=== PATIENT | male | born 1965 | race Caucasian/White ===

== ENCOUNTER 2020-05-12 09:03 | Day surgery (SDC) | payer OTHER, SELFPAY ==
[2020-05-12] VITALS (7 sets, daily range): BP systolic 114–150; BP diastolic 52–89; PULSE 65–88; RESP 12–16; TEMP 36.2–37.3; O2SAT 94–100; BMI 25.9
[2020-05-12] MEDS: Lactated Ringers 1,000 ML 100 ML IV ×2 (09:30→13:19)
[2020-05-12] MEDS: Cefazolin 2 GM in 0.9% Normal Saline 100 ML IV (10:48)
--- NOTE | 2020-05-12 10:49 | PCM.HP.STD ---
History of Present Illness Date of Admission: 05/12/20 Chief Complaint: Left symptomatic hydrocele The patient is a 55 year old male who presented to the office with symptomatic hydrocele tried conservative measures and antibiotics alone time and rest but he came back to the office still having more pain or discomfort and we discussed options and he wants to proceed with a hydrocelectomy which is reasonable. We did ultrasound demonstrated no masses in the testicle. Past Medical History Allergies No Known Allergies Allergy (Verified 05/12/20 09:09) Home Medications: Ambulatory Orders Medication Instructions Recorded NK 05/08/20 Surgical History: no surgical history Smoking Status: Never smoker Tobacco Use: Non-smoker Review of Systems Constitutional: Denies: Chills, Fever, Weight Change HEENT: Denies: Head Aches, Sinus Congestion, Sinus Drainage Cardiovascular: Denies: Chest Pain, Palpitations Respiratory: Denies: Cough, Shortness of breath at rest, Sputum production Gastrointestinal: Denies: Abdominal Pain, Nausea, Vomiting Genitourinary: Denies: Dysuria Musculoskeletal: Denies: Joint Pain, Joint Tenderness Skin: Denies: Rash, Wounds Neurological: Denies: Numbness, Tingling, Focal weakness Psychiatric: Denies: Anxiety, Depression, Homicidal Ideations, Suicidal Ideations Hematologic/ Lymphatic: Denies: Easy Bruising, Easy Bleeding VTE Information - Inpt Only VTE Present on Admission: No - Physical Exam Vitals/I&O's: Vital Signs Temp Pulse Resp BP Pulse Ox 99.1 F 83 16 150/89 H 100 05/12/20 09:18 05/12/20 09:18 05/12/20 09:18 05/12/20 09:18 05/12/20 09:18 Oxygen Delivery Method Room Air Weight: 82.1 kg Body Mass Index (BMI) 25.9 General: Alert, Oriented x3, Cooperative HEENT: Atraumatic, PERRLA, EOMI, Normocephalic Neck: Supple, No JVD, Negative Carotid Bruits Lungs: Clear to auscultation, Normal air movement Cardiovascular: Regular rate, No murmurs Abdomen: Bowel Sounds Present, Soft, Non Tender Extremities: No edema, Capillary Refill Less than 3 Seconds Skin: No rashes, No breakdown Musculoskeletal: No Tenderness to Palpation of Joints or Extremities Neurological: Cranial nerves II-XII grossly intact Psych/Mental Status: Normal Affect, Appropriate Microbiology Past 72 Hours 05/10/20 13:10 Interface Orders SARS-CoV-2 Antigen (Rapid) - Final Current Medications Cefazolin Sodium 2 gm/ Sodium (Chloride) 110 mls @ 150 mls/hr IV PREOP ONE Stop: 05/12/20 13:08 Lactated Ringer's () 1,000 mls @ 100 mls/hr IV .Q10H TRICE Last Admin: 05/12/20 09:30 Dose: 100 mls/hr Documented by: Assessment/Plan Plan proceed with left hydrocelectomy.
--- NOTE | 2020-05-12 10:51 | DCINST_ITS ---
Discharge Diet: Light diet - advance as tolerated Discharge Activity: May Not Drive, May not drive while taking narcotic pain medications. Call your doctor if your incision/area has: Sudden Increased Bleeding Call your doctor if you observe: Fever of 101 or Higher Suture Line Care: Avoid Pulling/Pushing, Avoid Pinching/Bending Allergies/Adverse Reactions: Allergies No Known Allergies Allergy (Verified 05/12/20 09:09) Medications to take at Discharge NK 05/08/20 Primary Care Physician: Anayeli Olivera MD [Primary Care Provider] - Test Results: Test results from this visit will be discussed in further detail at your follow- up appointment, if applicable. Please Follow Up With: Andrew Acosta MD - [phone] When: in 2 weeks, please call to make an appointment.
--- NOTE | 2020-05-12 11:10 | HYD_PTH ---
PATIENT: VENKATA KAUR [place] [facility] [place] [facility] [place][id number] AGE/SX: 55/M ROOM: RE05/12/[address]: Dr. Andrew Acosta MD : [id number] BED: DIS: 05/12/2020 SPEC #: [id number] RECD: 05/12/20 14:38 STATUS: YOVANY REVinnie #: [id number] LENIN: 05/12/20 11:[address]: Andrew Acosta DEPT: SURGICAL PATHOLOGY RECD BY: Dulce Ragland ENTERED: 05/15/20 06:53 SP TYPE: HYDROCELE OTHR DR: Dr. Anayeli Olivera MD Tissues: HYDROCELE Procedures: Surgery Specimen Level II HEADER OPERATION: Hydrocelectomy PRE-OP DIAGNOSIS: Left symptomatic hydrocele TISSUE SUBMITTED: Left hydrocele sac MICROSCOPIC DIAGNOSIS Left hydrocele sac: Consistent with hydrocele sac. Adjacent epididymis tissue, no pathologic diagnosis. SJ:loy 05/16/20 MICROSCOPIC DESCRIPTION Slides are reviewed. GROSS DESCRIPTION Received in fixative is one container labeled with the patient's name and designated left hydrocele sac. The specimen consists of three variable sized pieces of membranous tissue that in aggregate measure 6 x 6 x 0.5 cm. No mass lesion is identified. Key Punch Operator sections are submitted in one cassette. / SJ:loy 05/15/20 TC:5 CPT: 31652
[2020-05-12] MEDS: Bupivacaine Mpf 0.5% 30 ML VIAL (11:20)
--- NOTE | 2020-05-12 11:26 | PCM.OPRPT ---
Report of Operation Date of Procedure: 05/12/20 Pre-Operative Diagnosis: Left hydrocele and spermatocele Post-Operative Diagnosis: Same Surgery/Procedure Performed:: Excision of left large spermatocele and left large hydrocele Description of Surgical Findings:: 55-year-old male was having significant swelling in the left hemiscrotum on ultrasound was found to have what appeared to be a hydrocele she is taken back to surgery for removal of the hydrocele. After the patient went under general anesthesia the scrotum was shaved prepped and draped in usual sterile fashion made a small 3 cm incision the midline raphae dissected down to the dartos layer and then down to the hydrocele sac on the left side grabbed the sac with Allis clamps pulled up made an incision and then drained some fluid out but then underneath this was a large spermatocele. This was also grabbed an Allis clamp and drained and then I was able to deliver the entire testicle I then excised the spermatocele off the testicle and then excised the wings of the hydrocele off the testicle as well. Cauterized obtain hemostasis we then put the testicle back into the scrotum we closed the incision in the scrotum in 2 layers with a 3-0 chromic and a 4-0 chromic in a running fashion. Dressings and scrotal support was placed. Patient was taken back to the PACU after extubation in stable condition follow-up in the office in about 10 days for checkup. Type of Anesthesia:: General Drains: none - Admit VTE Documentation VTE Present on Admission: No
[2020-05-12] MEDS: proMETHazine 25 MG/ML Syringe 12.5 MG IV (13:06)
== END 2020-05-12 14:32 | disposition home or self-care (01) ==
LOC: SDC 09:03 → AC 09:04
PROVIDERS: Referring Provider Urology; Visit Provider Urology
PROC: (CPT 54840; principal; 2020-05-12 10:55)
DX: N43.3 Hydrocele, unspecified (principal); N43.41 Spermatocele of epididymis, single; Z20.828 Contact with and (suspected) exposure to other viral communicable diseases
CPT/HCPCS: 54840; 55040; 87426; 88302; C9803; J7120; J2405

== ENCOUNTER 2021-06-13 11:48 | Emergency (ER) | payer OTHER, SELFPAY ==
[2021-06-13 11:49] VITALS: BP 148/99; PULSE 75; RESP 18; TEMP 36.1; O2SAT 98; BMI 26.3
--- NOTE | 2021-06-13 12:03 | EKG12_ITS ---
Test Reason : CHEST PAIN Blood Pressure : / mmHG Vent. Rate : 074 BPM Atrial Rate : 074 BPM P-R Int : 150 ms QRS Dur : 078 ms QT Int : 374 ms P-R-T Axes : 041 015 035 degrees QTc Int : 415 ms Normal sinus rhythm with sinus arrhythmia Low voltage QRS (Limb Leads) Confirmed by LIBBY FOLEY, DEEPIKA ([id number]), editor index CARLITOS SANCHEZ ([id number]) on 06/28/2021 8:57:22 AM Referred By: DORA Confirmed By:DEEPIKA SOUZA MD
--- NOTE | 2021-06-13 12:03 | RAD_ITS ---
INDICATION: chest pain EXAMINATION/TECHNIQUE: X-RAY - XR Chest 1 View COMPARISON: None. FINDINGS: LINES/DEVICES: None. LUNGS: No consolidation, edema or effusion. No pneumothorax. MEDIASTINUM AND CARDIOVASCULAR STRUCTURES: Cardiac silhouette not enlarged. Central airways and mediastinal contour are unremarkable. BONES AND SOFT TISSUES: Unremarkable. RAD/Chest 1 View (Portable) IMPRESSION: No radiographic evidence of acute cardiopulmonary disease. Electronically Signed: Rangel Boucher MD at 13:12 EST Tel , Service support ,
--- NOTE | 2021-06-13 12:05 | NURSING ---
NO OLD EKGS
[2021-06-13 12:27] LABS: Absolute Lymphocyte Count 1.51 X10^3/uL (0.83-4.51); Absolute Neutrophil Count 3.8 X10^3/uL (2.0-7.7); Basophil# 0.04 X10^3/uL; Basophil% 0.7 % (0-1); Eosinophil# 0.07 X10^3/uL; Eosinophils% 1.2 % (0-5); Hematocrit 42.8 % (40-54); Hemoglobin 14.3 g/dL (13.0-16.5); Lymphocyte # 1.51 X10^3/ul (0.83-4.51); Lymphocyte % 25.9 % (19-41); Mean Corp Hgb Conc 33.4 g/dL (32-36); Mean Corpuscular Hgb 30.4 pg (27.0-32.0); Mean Corpuscular Volume 90.9 fL (80-94); Mean Platelet Vol. 9.1 fl (6.2-12.0); Monocyte# 0.37 X10^3/uL; Monocyte% 6.3 % (0-10); NRBC Flagged by Analyzer 0 % (0-5); Neutrophil # 3.84 X10^3/uL (2.7-7.7); Neutrophil % 65.7 % (47-70); Platelet Count 393 K/mm3 (150-450); RBC Distribution Width CV 12.7 % (11.6-14.6); RBC Distribution Width SD 41.4 fl (35.1-43.9); Red Blood Count 4.71 M/mm3 (4.6-6.2); White Blood Count 5.8 K/mm3 (4.4-11.0)
[2021-06-13 12:51] LABS: Anion Gap 6 (5-15); BUN 13 mg/dL (7-18); BUN/Creat Ratio 14.3 RATIO (10-20); Calcium,Total 9.5 mg/dL (8.5-10.1); Chloride 109 mmol/L (98-107); Creatinine, Serum 0.91 mg/dL (0.70-1.30); EST Glomerular Filtration Rate 91 mL/min (>60); Est Glom Filt Rate - Afr Amer 110 mL/min (>60); Estimated Creatinine Clearance 92.48 ml/min; Glucose 102 mg/dL (74-106); Sodium Level 140 mmol/L (136-145); Troponin-I HS 4 pg/mL (3.0-78.0)
--- NOTE | 2021-06-13 14:40 | ED.VIS.CHEST ---
HPI History of Present Illness Chief Complaint: Chest Pain Informant: patient Onset/Context/Timing Onset: Today Activity at onset: gradual Timing: Continuous Quality: Positive for Sharp Location: Substernal and Left Parasternal Worsened By: Nothing Relieved By: - (Rubbing his chest) Associated Symptoms: Positive for Cough and Lightheadedness; Negative for Nausea, Vomiting, Diaphoresis, Dyspnea, Fever, Acid Reflux and Palpitations Narrative Narrative: Patient presents with chest pain that began this morning. Patient states it is gradually gotten worse. Patient states it has been waxing and waning throughout the day. Patient describes his pain as sharp. Patient states the pain is over the left parasternal and substernal areas. Patient states it radiates into his back and a little into his right chest. Patient states he got better when he was rubbing his chest. Patient states nothing makes it worse. Patient admits to some mild lightheadedness with it. Patient has had a recent cough. Patient states this is from chronic sinus infections. Patient denies any nausea or vomiting. Patient denies any diaphoresis. Patient denies any shortness of breath or fevers. Patient states that earlier this week, he was kneeling down and when he stood up he felt a funny feeling in the back of his left knee. Patient states this resolved. CVD Risk Factors: Positive for Hypertension and Hypercholesterolemia; Negative for Diabetes, Family History 1' </=55 and Smoking PE Risk Factors: Negative for Recent Travel/Surgery, Recent Immobilization, Prior DVT or PE, Cancer and OCP + Smoking + >/=35 PFSH PFSH Medical History (Updated 06/13/21 @ 15:[address] Elijah Turcios DO) Hypercholesterolemia Hypertension Home Medications atorvastatin 10 mg PO DAILY 06/13/21 [History Last Taken Unknown] losartan 25 mg PO DAILY 06/13/21 [History Last Taken Unknown] Allergy/AdvReac Type Severity Reaction Status Date / Time No Known Allergies Allergy Verified 05/12/20 09:09 Surgical History S/P repair of hydrocele Social History Smoking Status: Never smoker ROS ROS ED Constitutional Constitutional ED: Denies chills or fever(s) Eyes Eyes: Denies blurry vision or change in vision ENT ENT ED: Reports ear pain right; Denies rhinorrhea or sore throat Cardiovascular Cardiovascular: Reports chest pain; Denies palpitations Respiratory/Chest Respiratory/Chest: Reports cough; Denies dyspnea Gastrointestinal Gastrointestinal: Reports nausea; Denies abdominal pain or vomiting Genitourinary Genitourinary ED: Denies dysuria or hematuria Musculoskeletal Musculoskeletal: Reports back pain; Denies neck pain Integumentary Denies abscess or rash Neurologic Neurologic: Denies headache(s) or weakness Allergic/Immunologic Allergic/Immunologic ED: Denies mouth swelling or urticaria EXAM Physical Exam Const Vital Signs: 06/13/21 11:49 06/13/21 14:40 06/13/21 14:46 Temperature 97 F L Temperature Source Temporal Pulse Rate 75 Respiratory Rate 18 Respiratory Effort Normal Blood Pressure 148/99 H Blood Pressure Mean 115 Pulse Ox 98 Oxygen Delivery Method Room Air Room Air 06/13/21 14:48 Temperature Temperature Source Pulse Rate 86 Respiratory Rate 18 Respiratory Effort Blood Pressure 125/92 H Blood Pressure Mean 103 Pulse Ox 97 Oxygen Delivery Method Room Air Positive well nourished and well developed General Appearance ED: well developed and NAD HEENT normocephalic and atraumatic Eyes PERRL and EOMs intact bilaterally Neck supple and no JVD Chest Wall inspection of chest normal and palpation of chest normal Resp normal respiratory effort and clear to auscultation bilaterally Effort and Inspection: Negative for respiratory distress Cardio regular rate, regular rhythm and no murmurs GI normal to inspection, nondistended, normoactive bowel sounds, soft to palpation, non-tender and non-distended Extremity normal to inspection General Extremety ED: Negative for edema or tenderness General Extremity: Negative for edema Neuro oriented x3, CN's II-XII intact bilaterally and no sensory deficits noted Sensorium / Orientation: awake and alert Motor Exam: strength 5/5 throughout Psych mental status grossly normal Heart Score History: Moderately Suspicious ECG: Normal Age: >45 - <65 years Risk Factors: 1 or 2 Risk Factors Troponin: </= Normal Limit Score: 3 MDM MDM MDM Narrative Medical decision making narrative: EKG was obtained. On my interpretation, it showed a normal sinus rhythm with a rate of 74. ND interval, QRS interval, and QTc intervals were all normal. [place] was normal. There are no acute ST or T wave changes. Portable 1 view chest x-ray was obtained. On my interpretation, lung bolanos are clear. There is normal cardiac silhouette. Bony thorax is normal. There is no acute process noted. Radiologist also interpreted the x-ray and agrees. CBC was within normal limits. Basic metabolic profile was obtained and was within normal limits. Initial high-sensitivity troponin was normal at 4. D-dimer was normal at 0.31. 2-hour repeat high-sensitivity troponin was normal at 5. Patient has a HEART score of 3. Patient was advised that this is low risk for acute cardiac event. Patient was instructed to follow-up with his primary care physician in 3 to 5 days. Patient was instructed return if worse in any way. Patient understood and was agreeable with the plan. All questions were answered. Lab Data Attestation: I reviewed the patient's lab results. Labs: Laboratory Results - last 24 hr 06/13/21 06/13/21 06/13/21 12:15 12:15 14:40 WBC 5.8 RBC 4.71 Hgb 14.3 Hct 42.8 MCV 90.9 MCH 30.4 MCHC 33.4 RDW Std Deviation 41.4 RDW Coeff of [place] 12.7 Plt Count 393 MPV 9.1 Immature Gran % (Auto) 0.200 Neut % (Auto) 65.7 Lymph % (Auto) 25.9 Cannon % (Auto) 6.3 Eos % (Auto) 1.2 Baso % (Auto) 0.7 Absolute Neuts (auto) 3.8 Absolute Lymphs (auto) 1.51 Nucleated RBC % 0 D-Dimer Quant (PE/DVT) Sodium 140 Potassium 5.0 Chloride 109 H Carbon Dioxide 25.0 Anion Gap 6 BUN 13 Creatinine 0.91 Estim Creat Clear Calc 92.48 Est GFR (MDRD) Af Amer 110 Est GFR (MDRD) Non-Af 91 BUN/Creatinine Ratio 14.3 Glucose 102 Calcium 9.5 Troponin I High Sens 4 5 06/13/21 14:40 WBC RBC Hgb Hct MCV MCH MCHC RDW Std Deviation RDW Coeff of [place] Plt Count MPV Immature Gran % (Auto) Neut % (Auto) Lymph % (Auto) Cannon % (Auto) Eos % (Auto) Baso % (Auto) Absolute Neuts (auto) Absolute Lymphs (auto) Nucleated RBC % D-Dimer Quant (PE/DVT) 0.31 Sodium Potassium Chloride Carbon Dioxide Anion Gap BUN Creatinine Estim Creat Clear Calc Est GFR (MDRD) Af Amer Est GFR (MDRD) Non-Af BUN/Creatinine Ratio Glucose Calcium Troponin I High Sens Radiography Chest X-Ray - ED: 1 View, Read by ED Physician, Read by Radiologist and Normal Diagnostic Testing: Clinical Impression(s) from Imaging Studies Chest X-Ray 06/13/21 12:03 IMPRESSION: No radiographic evidence of acute cardiopulmonary disease. Electronically Signed: Rangel Boucher MD at 13:12 EST Tel , Service support , EKG Initial EKG: Attestation: I personally reviewed and interpreted this EKG as follows: Interpretation: Sinus Rhythm (74) and No Acute Injury Pattern Prior EKG tracings: not available for review Discharge Plan Triage Chief Complaint: Chest Pain ED Provider: Elijah Turcios Dx/Rx/DC Orders Clinical Impression: Chest pain Instructions: ED Chest Pain, Uncertain Cause Prescriptions: No Action atorvastatin 10 mg tablet 10 mg PO DAILY RF: 0 losartan 25 mg tablet 25 mg PO DAILY RF: 0 Primary Care Provider: Heriberto Olivera Referrals: Heriberto Olivera MD [Primary Care Provider] - 3-5 Days Disposition Disposition: Home, Self Care
[2021-06-13 14:48] VITALS: BP 125/92; PULSE 86; RESP 18; O2SAT 97
[2021-06-13 15:11] LABS: Troponin-I HS 5 pg/mL (3.0-78.0)
[2021-06-13 15:12] LABS: D-Dimer Quantitative (DVT/PE) 0.31 FEU/ug/m (0.27-0.49)
[2021-06-13 15:58] VITALS: BP 125/96; PULSE 76; RESP 15; O2SAT 98
== END 2021-06-13 15:59 | disposition home or self-care (01) ==
PROVIDERS: Emergency Provider Emergency Medicine; PCP Family Medicine
DX: R07.89 Other chest pain (principal); R42 Dizziness and giddiness; I10 Essential (primary) hypertension; E78.00 Pure hypercholesterolemia, unspecified; Z79.899 Other long term (current) drug therapy
CPT/HCPCS: 71045; 80048; 84484; 85025; 85379; 93005; 99283